=== PATIENT | male | born 1985 | race African-American/Black ===

== ENCOUNTER 2025-07-28 19:58 | Emergency (ER) | payer SELFPAY ==
[~2025-07-28] VITALS: Ht 170.2 cm; Wt 101.6 kg
[2025-07-28 20:31] VITALS: PULSE 78; RESP 18; TEMP 98.5
[2025-07-28] MEDS ORDERED: NAPROSYN500 MG PO (21:05)
[2025-07-28 21:12] VITALS: BP 178/83; PULSE 78; RESP 18; TEMP 98.5; O2SAT 96
== END 2025-07-28 21:12 | disposition home or self-care (01) ==
LOC: FSED 20:39
DX: M25.511 Pain in right shoulder (principal); M54.12 Radiculopathy, cervical region; I10 Essential (primary) hypertension
CPT/HCPCS: 99282